=== PATIENT | male | born 1945 | race Caucasian/White ===

== ENCOUNTER 2018-09-06 22:32 | Outpatient (REF) | payer MEDICARE, SELFPAY ==
[2018-09-06 22:05] LABS: BUN 16 mg/dL (7-18); CREATININE 0.73 mg/dL (0.70-1.30); Calcium 9.4 mg/dL (8.5-10.1); Chloride 100 mmol/L (98-107); Glucose 116 mg/dL (70-100); Magnesium 1.5 mg/dL (1.8-2.4); Potassium 4.9 mmol/L (3.5-5.1); Sodium 141 mmol/L (136-145)
== END 2018-09-06 22:52 ==
LOC: NCHCN 22:32
PROVIDERS: PCP Internal Medicine; Visit Provider Internal Medicine
DX: I10 Essential (primary) hypertension (principal); G89.29 Other chronic pain
CPT/HCPCS: 80048; 83735

== ENCOUNTER 2019-03-15 21:19 | Outpatient (REF) | payer MEDICARE, SELFPAY ==
[2019-03-15 22:05] LABS: Glucose 109 mg/dL (70-100)
[2019-03-15 22:17] LABS: Hemoglobin A1C 5.9 % (4.5-6.2)
== END 2019-03-15 21:39 ==
LOC: NCHCN 21:19
PROVIDERS: PCP Internal Medicine; Visit Provider Internal Medicine
DX: R73.09 Other abnormal glucose (principal)
CPT/HCPCS: 82947; 83036

== ENCOUNTER 2019-09-11 08:12 | Outpatient (REF) | payer MEDICARE, SELFPAY ==
[2019-09-11 20:24] LABS: ALT 41 U/L (16-63); AST 26 U/L (15-37); Albumin 3.9 g/dL (3.4-5.0); Alkaline Phosphatase 105 U/L (46-116); Anion Gap 6.1 mmol/L (3-11); BUN 16 mg/dL (7-18); CO2 33.9 mmol/L (21.0-32.0); CREATININE 0.88 mg/dL (0.70-1.30); Calcium 8.9 mg/dL (8.5-10.1); Calculated LDL 49 mg/dL (<100); Chloride 100 mmol/L (98-107); Cholesterol 125 mg/dL (<200); Glucose 97 mg/dL (74-106); HDL Cholesterol 30 mg/dL (40-60); Potassium 4.4 mmol/L (3.5-5.1); Sodium 140 mmol/L (136-145); Total Protein 6.8 g/dL (6.4-8.2); Triglyceride 233 mg/dL (<150)
== END 2019-09-11 08:32 ==
LOC: NCHCN 08:12
PROVIDERS: PCP Internal Medicine; Visit Provider Internal Medicine
DX: I10 Essential (primary) hypertension (principal); R73.09 Other abnormal glucose
CPT/HCPCS: 80053; 80061; 83036

== ENCOUNTER 2020-07-03 16:05 | Outpatient (REF) | payer MEDICARE, SELFPAY ==
[2020-07-03 13:51] LABS: HCT 43.8 % (40.0-50.0); HGB 13.8 g/dL (13.5-17.5); MCH 32.6 pg (27.0-33.0); MCHC 31.5 % (32.0-36.0); MCV 103.5 fL (80-95); MPV 10.7 fL (8.0-11.0); Platelet Count 185 10^3/uL (130-400); RBC 4.23 10^6/uL (4.36-5.78); RDW 14.1 % (11.8-14.1); RDW-SD 53.5 fL; WBC 9.57 10^3/uL (4.4-10.8)
[2020-07-03 14:19] LABS: Anion Gap 5.1 mmol/L (3-11); BUN 19 mg/dL (7-18); CO2 33.9 mmol/L (21.0-32.0); Calcium 9.4 mg/dL (8.5-10.1); Chloride 100 mmol/L (98-107); Glucose 111 mg/dL (74-106); NT-proBNP 980 pg/mL (<300); Potassium 4.2 mmol/L (3.5-5.1); Sodium 139 mmol/L (136-145)
== END 2020-07-03 16:06 | disposition home or self-care (01) ==
LOC: NCHCN 16:05
PROVIDERS: PCP Internal Medicine; Visit Provider Internal Medicine Cardiovascular Disease
DX: I35.0 Nonrheumatic aortic (valve) stenosis (principal); R06.02 Shortness of breath
CPT/HCPCS: 80048; 85027; 83880

== ENCOUNTER 2020-07-11 18:45 | Outpatient (CLI) | payer MEDICARE, SELFPAY ==
[2020-07-13 16:56] LABS: COVID-19 RT-PCR UVMMC Result Negative (Negative)
== END 2020-07-11 18:46 | disposition home or self-care (01) ==
LOC: LBO 07-17 18:47
PROVIDERS: PCP Internal Medicine; Visit Provider Internal Medicine Cardiovascular Disease
DX: Z01.818 Encounter for other preprocedural examination (principal)
CPT/HCPCS: U0003

== ENCOUNTER 2020-07-25 11:36 | Outpatient (REF) | payer MEDICARE, SELFPAY ==
[2020-07-25 13:17] LABS: Anion Gap 0.2 mmol/L (3-11); BUN 17 mg/dL (7-18); CO2 35.8 mmol/L (21.0-32.0); CREATININE 0.9 mg/dL (0.70-1.30); Calcium 8.5 mg/dL (8.5-10.1); Chloride 99 mmol/L (98-107); Glucose 219 mg/dL (74-106); Potassium 4.5 mmol/L (3.5-5.1); Sodium 135 mmol/L (136-145)
== END 2020-07-25 11:37 | disposition home or self-care (01) ==
LOC: NCHCN 11:36
PROVIDERS: PCP Internal Medicine; Visit Provider Internal Medicine
DX: R60.0 Localized edema (principal)
CPT/HCPCS: 80048

== ENCOUNTER 2020-08-18 22:03 | Outpatient (REF) | payer MEDICARE, SELFPAY ==
[2020-08-18 22:04] LABS: Anion Gap 6.7 mmol/L (3-11); BUN 23 mg/dL (7-18); CO2 32.3 mmol/L (21.0-32.0); Calcium 8.6 mg/dL (8.5-10.1); Chloride 102 mmol/L (98-107); Glucose 105 mg/dL (74-106); Sodium 141 mmol/L (136-145)
== END 2020-08-18 22:04 | disposition home or self-care (01) ==
LOC: LBN 22:03
PROVIDERS: PCP Internal Medicine; Visit Provider Internal Medicine
DX: I35.0 Nonrheumatic aortic (valve) stenosis (principal); I11.9 Hypertensive heart disease without heart failure; Z95.2 Presence of prosthetic heart valve
CPT/HCPCS: 80048